=== PATIENT | female | born 1955 | race Caucasian/White ===

== ENCOUNTER 2018-05-15 07:15 | Day surgery (SDC) | payer BC ==
[~2018-05-15 07:15] MED LIST: Lactated Ringers 1,000 ML IV SCH; Sodium Chloride 0.9% 10 ML Syringe FLUSH PRN
--- NOTE | 2018-05-15 08:39 | PCM.HP ---
H&P History of Present Illness - General Date of Service: 05/15/18 Admit Problem/Dx: Admission Diagnosis/Problem Admission Diagnosis/Problem Colonoscopy Source of Information: Patient, Old Records History Limitations: Reports: No Limitations - History of Present Illness Initial Comments - Free Text/Narative: Here for colonoscopy for hx polyps; last colonoscopy May 2013 - Related Data Allergies/Adverse Reactions: Allergies Allergy/AdvReac Type Severity Reaction Status Date / Time No Known Allergies Allergy Verified 05/15/18 08:06 Home Medications: Home Meds Calcium Carbonate [Calcium] 500 mg PO DAILY 05/12/18 [History] Cholecalciferol (Vitamin D3) [Vitamin D3] 2,000 unit PO DAILY 05/12/18 [History] Cyanocobalamin (Vitamin B-12) [Vitamin B-12] 1,000 mcg PO DAILY 05/12/18 [ History] Escitalopram [Lexapro] 20 mg PO BEDTIME 05/12/18 [History] L.acidoph,Paracasei, B.lactis [Probiotic] 1 each PO DAILY 05/12/18 [History] Levothyroxine [Synthroid] 50 mcg PO ACBREAKFAST 05/12/18 [History] Magnesium Amino Acid Chelate [Magnesium] 100 mg PO DAILY 05/12/18 [History] Multivitamin with Minerals [Multiple Vitamin] 1 tab PO DAILY 05/12/18 [History] Simvastatin [Zocor] 40 mg PO BEDTIME 05/12/18 [History] Past Medical History Cardiovascular History: Reports: High Cholesterol Respiratory History: Reports: None Gastrointestinal History: Reports: None Genitourinary History: Reports: None [employer] History: Reports: Musculoskeletal History: Reports: Osteoarthritis Other Musculoskeletal History: HALLUX VALGUS Neurological History: Reports: None Psychiatric History: Reports: Anxiety, PTSD Endocrine/Metabolic History: Reports: Hypothyroidism Hematologic History: Reports: None Immunologic History: Reports: None Oncologic (Cancer) History: Reports: None Dermatologic History: Reports: None - Past Surgical History HEENT Surgical History: Reports: Oral Surgery, Tonsillectomy GI Surgical History: Reports: Colonoscopy, Polypectomy Female Surgical History: Reports: Breast Biopsy, Section Other Musculoskeletal Surgeries/Procedures:: CUBETAL TUNNEL Social & Family History - Tobacco Use Smoking Status *Q: Never Smoker - Caffeine Use Caffeine Use: Reports: Coffee - Recreational Drug Use Recreational Drug Use: No Drug Use in Last 12 Months: No H&P Review of Systems - Review of Systems: Review Of Systems: ROS reveals no pertinent complaints other than HPI. Exam - Exam Exam: See Below - Vital Signs Vital Signs: Last Vital Signs Temp 97.8 F 05/15/18 07:45 Pulse 76 05/15/18 07:45 Resp 16 05/15/18 07:45 BP 105/74 05/15/18 07:45 Pulse Ox 94 L 05/15/18 07:45 Weight: 75.75 kg - Exam General: Alert, Oriented Lungs: Clear to Auscultation, Normal Respiratory Effort Cardiovascular: Regular Rate, Regular Rhythm GI/Abdominal Exam: Soft, Non-Tender Problem List Initiated/Reviewed/Updated: Yes Orders Last 24hrs: Active Orders 24 hr Category Date Time Status Patient Status [ADT] Routine ADT 05/15/18 06:45 Ordered Patient to Empty Bladder [RC] ASDIRECTED Care 05/15/18 06:45 Active Verify Patient Consent Obtain [RC] ASDIRECTED Care 05/15/18 06:45 Active Lactated Ringers [Ringers, Lactated] 1,000 ml Med 05/15/18 06:45 Active IV ASDIRECTED Sodium Chloride 0.9% [Saline Flush] Med 05/15/18 06:45 Active 10 ml FLUSH ASDIRECTED PRN Peripheral IV Insertion Adult [OM.PC] Routine Oth 05/15/18 06:45 Ordered Medication Orders Lactated Ringer's (Ringers, Lactated) 1,000 mls @ 125 mls/hr IV ASDIRECTED [facility] Last Admin: 05/15/18 08:25 Dose: 125 mls/hr Sodium Chloride (Saline Flush) 10 ml FLUSH ASDIRECTED PRN PRN Reason: Keep Vein Open Assessment/Plan Comment:: Hx Colon Polyps Ok to proceed with colonoscopy; Risks and complications reviewed, consent obtained
[2018-05-15] MEDS ORDERED: Propofol 200 MG/20 ML SDV IV ONE (08:47)
--- NOTE | 2018-05-15 09:18 | PCM.OPNOTE ---
- General Post-Op/Procedure Note Date of Surgery/Procedure: 05/15/18 Operative Procedure(s): Colonoscopy Findings: Normal Pre Op Diagnosis: Hx Colon Polyps Post-Op Diagnosis: Same Anesthesia Technique: RASHEL Primary Surgeon: Tripp Crzu Anesthesia Provider: Phyllis Bean Complications: None Condition: Good
--- NOTE | 2018-05-18 11:08 | OR ---
DATE OF OPERATION: 05/18/2018 SURGEON: Tripp Cruz MD PREOPERATIVE DIAGNOSIS: History of colon polyps. POSTOPERATIVE DIAGNOSIS: Normal colonoscopy. PROCEDURE: Colonoscopy. ANESTHESIA: IV sedation. DESCRIPTION OF PROCEDURE: The patient was brought to the procedure room, where she was placed on her left side and IV sedation administered. Digital rectal exam was performed, which was normal. The colonoscope was inserted and advanced to the level of the cecum without difficulty. Cecal position was confirmed by identifying the appendiceal lumen and ileocecal valve. Prep was good and surfaces were well visualized. Upon withdrawing the scope, the ascending, transverse and descending colons were normal in appearance. Sigmoid colon and rectum were normal. Retroflexion was normal. Air was removed, and the scope withdrawn. The patient tolerated the procedure well and returned to Recovery in a stable condition. Recommend routine colon screening again in five years. /[id number] REBECA/DOMINIC
== END 2018-05-15 10:15 | disposition home or self-care (01) ==
LOC: FB.SDS 07:15
PROVIDERS: ATTEND Surgery
DX: Z12.11 Encounter for screening for malignant neoplasm of colon (principal); E78.00 Pure hypercholesterolemia, unspecified; E03.9 Hypothyroidism, unspecified; F41.9 Anxiety disorder, unspecified; Z87.891 Personal history of nicotine dependence; Z86.010 Personal history of colon polyps; Z79.899 Other long term (current) drug therapy
CPT/HCPCS: J2704; J7120